=== PATIENT | female | born 1945 | race Caucasian/White ===

== ENCOUNTER 2021-06-24 12:48 | Emergency (ER) | payer OTHER, MEDICARE ==
[2021-06-24] MEDS ORDERED: Ondansetron PF 4 MG/2 ML Vial ONE (13:05)
[2021-06-24] MEDS ORDERED: Ketorolac Tromethamine 30 MG/ML VIAL ONE (13:14)
[2021-06-24] MEDS ORDERED: diphenhydrAMINE 50 MG/ML VIAL ONE (13:14)
[2021-06-24] MEDS ORDERED: Lorazepam 2 MG/ML VIAL ONE (14:42)
== END 2021-06-24 18:09 | disposition home or self-care (01) ==
LOC: CSHERS 12:48
DX: S09.90XA Unspecified injury of head, initial encounter (principal); S42.212A Unspecified displaced fracture of surgical neck of left humerus, initial encounter for closed fracture; S42.252A Displaced fracture of greater tuberosity of left humerus, initial encounter for closed fracture; I10 Essential (primary) hypertension; W01.0XXA Fall on same level from slipping, tripping and stumbling without subsequent striking against object, initial encounter; Y93.G1 Activity, food preparation and clean up; Z79.899 Other long term (current) drug therapy
CPT/HCPCS: 70450; 71045; 96374; 96375; J1200; J1885; J2060; J2405